=== PATIENT | male | born 1945 | race African-American/Black ===

== ENCOUNTER 2016-10-14 13:14 | Emergency (ER) | payer MEDICARE ==
[2016-10-07 12:48] VITALS: BMI 44.5
[~2016-10-14 13:14] MED LIST: ALDACTONE25 MG PO; ASPIRIN81 MG PO; BROVANA15 MCG/2 M INH; COUMADIN7.5 MG PO; COZAAR50 MG PO; DOXYCYCLINE HY100 M2 PO; FLUTICASONE PRO16 GM NASAL; HYDROCODONE-APA1 TAB PO; IPRAT-ALBUT 0.5-3 ML INH; K-DUR20 MEQ PO; LASIX40 MG PO; LEVAQUIN500 MG PO; LEVAQUIN750 MG PO; LIPITOR40 MG PO; LOPRESSOR25 MG PO; MEDROL DOSE PACK4 MG PO; METOLAZONE2.5 MG PO; OXYCODONE H5 MG/5 ML PO; PEPCID20 MG PO; PLAVIX75 MG PO; PRAVACHOL40 MG PO; PROAIR HFA8.5 GM INH; PULMICORT0.5 MG/21 UPD; SINGULAIR10 MG PO; XARELTO15 MG PO; ZYLOPRIM300 MG PO
[2016-10-14 13:46] LABS: BASOPHILS 0.3 % (0.0-2.0); EOSINOPHILS 2.8 % (0-7); HEMATOCRIT 41.4 % (42.0-54.0); HEMOGLOBIN 13.5 g/dL (13.5-17.5); IMMATURE GRANULOCYTES 0.3 % (0-5); LYMPHOCYTES 14.1 % (15-50); MCH 28.4 pg (26.0-34.0); MCHC 32.6 g/dL (31.0-37.0); MCV 87.2 fL (80.0-100.0); MEAN PLATELET VOLUME 12.9 fL (7.4-10.4); MONOCYTES 9.2 % (2-11); NEUTROPHILS 73.3 % (40-80); PLATELET COUNT 168 10x3/uL (130-400); RBC 4.75 10x6/uL (4.20-6.10); RDW 16.2 % (11.5-14.5); WBC 6.5 10x3/uL (4.8-10.8)
[2016-10-14 14:11] LABS: ALBUMIN 3.1 g/dL (3.4-5.0); ANION GAP 11.8 mmol/L (8-16); BILIRUBIN - TOTAL 0.7 mg/dL (0.2-1.3); CALCIUM 9.6 mg/dL (8.5-10.1); CARBON DIOXIDE 29.3 mmol/L (21.0-32.0); CREATININE - SERUM 1.5 mg/dL (0.6-1.3); POTASSIUM - SERUM 4.1 mmol/L (3.5-5.1); PROTEIN - SERUM 5.7 g/dL (6.4-8.2)
[2016-10-14 14:50] LABS: APPEARANCE HAZY (CLEAR); BACTERIA MODERATE /hpf (NONE SEEN); BILIRUBIN NEGATIVE (NEGATIVE); COLOR YELLOW (YELLOW); GLUCOSE NEGATIVE (NEGATIVE); KETONE NEGATIVE (NEGATIVE); LEUKOCYTE ESTERASE 2+ (NEGATIVE); MUCUS <1+ /lpf (NONE SEEN); NITRITE NEGATIVE (NEGATIVE); PROTEIN 1+ mg/dL (NEGATIVE); RED CELLS - URINE RARE /hpf (0-5); SPECIFIC GRAVITY 1.015 (1.005-1.020); UROBILINOGEN NORMAL (NORMAL); WHITE CELLS - URINE 25-50 /hpf (0-5)
[2016-10-14 15:31] LABS: TROPONIN-I 0.275 ng/mL (0.000-0.060)
== END 2016-10-14 16:36 | disposition home or self-care (01) ==
LOC: D.ER 13:14
PROVIDERS: Emergency Medicine Emergency Medical Services
DX: I50.9 Heart failure, unspecified (principal); I48.91 Unspecified atrial fibrillation; R10.9 Unspecified abdominal pain; I99.8 Other disorder of circulatory system; R79.89 Other specified abnormal findings of blood chemistry; N39.0 Urinary tract infection, site not specified; A59.9 Trichomoniasis, unspecified; J44.9 Chronic obstructive pulmonary disease, unspecified; I51.7 Cardiomegaly; I45.10 Unspecified right bundle-branch block